=== PATIENT | female | born 1950 | race Caucasian/White ===

== ENCOUNTER 2020-08-26 10:44 | Outpatient (REF) | payer MEDICARE, SELFPAY | END 2020-08-26 10:45 | disposition home or self-care (01) | LOC: HO.HOSX 10:44 | PROVIDERS: PCP Internal Medicine; Visit Provider Orthopaedic Surgery | DX: Z13.89 Encounter for screening for other disorder (principal) ==

== ENCOUNTER 2020-08-28 10:55 | Outpatient (REF) | payer MEDICARE, SELFPAY ==
--- NOTE | ~2020-08-28 | XR_ITS ---
EXAMINATION: XR HIP, LEFT CLINICAL INFORMATION: Pain COMPARISON: Previous left hip x-ray August 2019 TECHNIQUE: Two views of the left hip and one view of the pelvis. FINDINGS: There is a left hip replacement in satisfactory position. No fracture, dislocation or x-ray evidence of loosening is seen. There is arthritis at the right hip joint. Bones of the pelvis are unremarkable. There is scoliosis and degenerative change of the visualized lower lumbar spine. Soft tissues are unremarkable. XR/XR hip LT w PEL1V IMPRESSION: Satisfactory appearance of left hip replacement.
== END 2020-08-28 10:56 | disposition home or self-care (01) ==
LOC: HO.XRAY 10:55
PROVIDERS: PCP Internal Medicine; Visit Provider Orthopaedic Surgery
DX: M25.552 Pain in left hip (principal); Z96.642 Presence of left artificial hip joint
CPT/HCPCS: 73502; 99212

== ENCOUNTER 2023-07-28 09:16 | Outpatient (REF) | payer MEDICARE, SELFPAY ==
--- NOTE | ~2023-07-28 | XR_ITS ---
EXAMINATION: XR HIP, RIGHT CLINICAL INFORMATION: Hip pain COMPARISON: 08/28/2020 TECHNIQUE: Two views of the pelvis and right hip. FINDINGS: Bony pelvis is intact. Degenerative changes visualized lower lumbar spine with scoliosis. SI joints within normal limits. Left total hip replacement is stable in position and is satisfactory in position. No change to indicate interval loosening. Severe right hip joint narrowing with sclerosis and subchondral cysts. Pelvic phleboliths. Soft tissue density in the pelvis likely bladder. XR/XR hip RT w PEL1V IMPRESSION: Advanced osteoarthritis right hip. Left total hip replacement. Degenerative changes lower lumbar spine.
== END 2023-07-28 09:17 | disposition home or self-care (01) ==
LOC: HO.HOSX 09:16
PROVIDERS: Visit Provider Physician Assistant
DX: M16.11 Unilateral primary osteoarthritis, right hip (principal); M54.50 Low back pain, unspecified; Z96.642 Presence of left artificial hip joint
CPT/HCPCS: 73502; 99212

== ENCOUNTER 2023-07-28 10:45 | Outpatient (AMB) | payer MEDICARE, SELFPAY ==
--- NOTE | 2023-07-28 11:10 | MHC.OFFVIS ---
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 Patient reports the past 6 months she has been experiencing lower back pain that radiates down into her hip and leg. States not sure if she strained a muscle due to being physically active doing yard work. States pain is worse with going into a sitting position or reclining in a chair. Finds some relief with heat, vicks, and ibuprofen prn. No relief with icing. Hx of left hip replacement. 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 She states she has sharp shooting pain in her lower back which radiates down to her hip and leg. Her pain is aggravated with sitting, getting in and out of chair, and reclining on chair. She finds mild relief with heat, Vicks and occasional ibuprofen. She has not had any previous injury. She reports she is not sure if she strained a muscle due to being physically active doing yard work. She also walks twice a day and do exercises. She has a history of left MAYR in August [address] Munguia. [facility] Social History (Updated 07/28/23 @ 11:14 by Taylor Pillai Julio) Patient Tobacco Use Status: Never used Tobacco Current occupational status: unemployed and retired Review of Systems Const All systems reviewed & are unremarkable except as noted in HPI and below Physical Exam Vital Signs: BMI result Body Mass Index 21.3 Const General: cooperative, healthy appearing, comfortable, no acute distress, well developed and alert Orientation/consciousness: patient oriented x3 HEENT Head: Yes normal to inspection, Yes normocephalic and Yes atraumatic Eyes General: appearance normal, both eyes and all related structures Resp Effort & Inspection: normal respiratory effort and able to speak in complete sentences Cardio Rate: regular rate Peripheral pulses: Peripheral pulses 2+ throughout GI Palpation (GI): Soft to palpation Skin Lesions: no lesions Rashes: no rashes Neuro General: patient oriented x3 Extrem Other: Right hip: Normal to inspection, ambulates with a slight limp. Has mild discomfort with internal and extension rotation of hip. No significant stiffness. Mild discomfort with hip flexion against resistance. NVI. Negative SI joint tenderness. Results Reviewed Results Reviewed: Xrays were obtained in the office today and personally reviewed by me of the right hip show moderat oa Assessment & Plan Assessment & Plan (1) Osteoarthritis of right hip: Code(s): M16.11 - Unilateral primary osteoarthritis, right hip Qualifiers: Osteoarthritis type: primary Qualified Code(s): M16.11 - Unilateral primary osteoarthritis, right hip Plan We discussed options which include physical therapy which she did hold off at this time. I did give her a handout of home exercises in the office today. If symptoms persist or worsens where she has limitations with activities, patient will contact the office, otherwise follow-up as needed. Orders: Orders XR hip RT w PEL1V Today M25.559 - Pain in unspecified hip Patient Instructions: Scribed for Анна Landaverde PA-C, by Arsalan Peres medical surgery nurse, on 07/28/2023 at 11:00 AM VERNON. Que, Анна Landaverde PA-C, have personally reviewed and agree with the information entered by the scribe. Coding Level of Care Code Est Pt Level 3 (75377) Diagnoses Primary osteoarthritis of right hip M16.11 Osteoarthritis type: primary
[2023-07-28 11:13] VITALS: BMI 21.3
== END 2023-07-28 12:05 | disposition home or self-care (01) ==
PROVIDERS: Visit Provider Physician Assistant
DX: M16.11 Unilateral primary osteoarthritis, right hip (principal)
CPT/HCPCS: 99213

== ENCOUNTER 2023-09-14 13:03 | Outpatient (AMB) | payer MEDICARE, SELFPAY ==
--- NOTE | 2023-09-14 13:46 | MHC.OFFVIS ---
Intake Intake Visit Reasons: OV - Right Hip OA - Discuss Surgery Intake Note: Nadja is a 72 year old female who presents today to discuss possible Right MARY. She was referred by Анна Landaverde. She is interested in trying a cortisone injection as she is going on a cruise next week. Allergies amoxicillin [AMOXICILLIN] Allergy (Unknown, Unverified 07/28/23 11:14) RASH,NAUSEA Sulfa (Sulfonamide Antibiotics) [SULFA (SULFONAMIDE ANTIBIOTICS)] Allergy (Unknown, Unverified 07/28/23 11:14) UNKNOWN HPI OV - Right Hip OA - Discuss Surgery HPI Details This is a 72 yo F who had a left hip replacement with Dr Munguia ~5 years ago. She comes in today describing 4-5 months of right hip pain. She describes pain radiating down her thigh and into her leo. She states there is no pain with walking but sitting/lying down can be unbearable. She has electrical shocks that run down her leg. She also has some sharp pain with occasional hip motion that localizes to anterior and posterolateral hip. Denies bowel or bladder dysfunction. Is taking NSAIDs and Tylenol. Cannot sleep. Is very uncomfortable [facility] Social History (Updated 07/28/23 @ 11:14 by Taylor Pillai [facility]) Patient Tobacco Use Status: Never used Tobacco Current occupational status: unemployed and retired Physical Exam Const General: cooperative, healthy appearing, no acute distress, well developed and alert HEENT Head: Yes normal to inspection, Yes normocephalic and Yes atraumatic Mouth: moist mucous membranes Eyes General: appearance normal, both eyes and all related structures EOM: EOMs intact bilaterally Chest Other: no audible wheezing. Resp Other: No audible wheezing Effort & Inspection: normal respiratory effort Cardio Other: Radial pulse palpable with no rythmic abnormalities Back/Spine/Pelvis Cervical Spine: normal cervical lordosis Skin General skin exam: no rashes or lesions noted Neuro General: no focal motor deficits Extrem Other: no gait antalgia Neg impingement neg stinchfield + lumbar compression with leo pain Psych Appearance: grossly normal and well kempt Mental Status: mental status grossly normal Speech and movement: Normal speech and movement present Affect: normal affect Attitude: cooperative Results Reviewed Results Reviewed: I personally reviewed relevant radiographs. Right hip OA that is essentially unchanged compared to prior imaging in 2020 Assessment & Plan Assessment & Plan (1) Lumbar radicular syndrome: Code(s): M54.16 - Radiculopathy, lumbar region Plan: SIgns and syptoms of lumbar radiculopathy for 6 months with stable right hip OA She is extremely uncomfortable and I ordered a medrol dose pack and recommend an MRI of her lumbar spine. She will d/c NSAIDs. Orders: Orders MR lumbar spine wo con Today M54.16 - Radiculopathy, lumbar region Medications: New methylprednisolone (Medrol (Mateusz)) PO PER PKG DIR for 6 days 1 ea 0RF Coding Level of Care Code New Pt Level 4 (13132) Diagnoses Lumbar radicular syndrome M54.16
== END 2023-09-14 15:39 | disposition home or self-care (01) ==
PROVIDERS: Visit Provider Orthopaedic Surgery
DX: M54.16 Radiculopathy, lumbar region (principal); M16.11 Unilateral primary osteoarthritis, right hip
CPT/HCPCS: 99204

== ENCOUNTER → 2023-09-14 13:03 | Outpatient (BNVA) | payer MEDICARE, SELFPAY | PROVIDERS: Visit Provider Orthopaedic Surgery | DX: M54.16 Radiculopathy, lumbar region (principal) | CPT/HCPCS: 99202 ==

== ENCOUNTER 2023-10-04 15:48 | Outpatient (REF) | payer MEDICARE, SELFPAY ==
--- NOTE | ~2023-10-04 | MR_ITS ---
EXAMINATION: MR LUMBAR SPINE WITHOUT CONTRAST CLINICAL INFORMATION: Radiculopathy COMPARISON: None TECHNIQUE: MRI of the lumbar spine was obtained using routine sequences without contrast. FINDINGS: There is lower thoracic/upper lumbar dextrocurvature, apex at L1-L2, and mild lower lumbar levocurvature. Left lateral listhesis at T12-L1 and L1-L2 with right lateral listhesis at L3-L4 greater than L2-L3. Sagittal alignment is preserved. Trace retrolistheses at L1-L2, L2-L3, L3-L4 and minimally at L4-L5. Vertebral body heights are maintained. There is no suspicious osseous lesion. Diffuse disc desiccation with multilevel severe disc height loss along the concavity of the scoliotic curvature with diffuse endplate irregularity/Schmorl's nodes and mixed type I and II Modic endplate changes. Type I Modic endplate changes are most pronounced on the left at L1-L2 with degenerative/stress-related edema extending into the left-sided posterior elements at this level. Multilevel ventral disc osteophytes most pronounced at L1-L2. Level by level detail as follows: L1-L2: Left eccentric disc osteophyte and mild bilateral facet arthrosis. No spinal canal stenosis, noting left subarticular zone narrowing abutting the traversing left L2 nerve root. Mild to moderate left without right neural foraminal stenosis. L2-L3: Left eccentric disc osteophyte and mild bilateral facet arthrosis with ligamentum flavum thickening. Mild spinal canal and subarticular zone narrowing. Moderate left neural foraminal stenosis with disc osteophyte impinging upon the exiting/extraforaminal left L2 nerve root. No right neural foraminal stenosis. L3-L4: Disc osteophyte complex and [id number]-[id number] bilateral facet arthrosis with ligamentum flavum thickening. No spinal canal stenosis, noting subarticular zone narrowing bilaterally. Moderate right and mild left neural foraminal stenosis with impingement upon the exiting/extraforaminal bilateral L3 nerve roots. L4-L5: Annular disc bulge with right greater than left foraminal disc protrusions and right lateral disc osteophyte. Moderate bilateral facet arthrosis with ligamentum flavum thickening. Degenerative marrow edema associated with the right facet joint and degenerative/stress related edema of the right-sided L4 and L5 pedicles. No spinal canal stenosis. Moderate right and mild left neural foraminal stenosis with impingement upon the exiting/extraforaminal right and L5-S1: Right eccentric disc osteophyte complex, severe hypertrophic right and milder left facet arthrosis. No spinal canal stenosis. Severe right neural foraminal stenosis with compression of the exiting/extraforaminal right L5 nerve root. No left neural foraminal stenosis. The conus medullaris terminates at the level of T12-L1. The distal spinal cord is normal in appearance. No epidural fluid collection, hematoma, or mass. No significant abnormalities of the paraspinal musculature. Limited evaluation of the intra-abdominal structures without significant abnormalities. The abdominal aorta is of normal contour and caliber. MR/MR lumbar spine wo con IMPRESSION: 1. S-shaped thoracolumbar scoliosis with lower thoracic/upper lumbar dextrocurvature and mild lower lumbar levocurvature. Multilevel advanced discogenic disease along the concavity of the scoliotic curvature. 2. Lumbar spondylosis as described without high-grade spinal canal stenosis. Multilevel neural foraminal stenosis, worst and severe on the right at L5-S1 with compression of the exiting/extraforaminal right L5 nerve root. Moderate neural foraminal stenosis on the left at L2-L3 and on the right at L3-L4 and L4-L5 with impingement upon the exiting/extraforaminal nerve roots at these levels.
== END 2023-10-04 15:49 | disposition home or self-care (01) ==
LOC: HO.MRI 15:48
PROVIDERS: Visit Provider Orthopaedic Surgery
DX: M54.16 Radiculopathy, lumbar region (principal)
CPT/HCPCS: 72148

== ENCOUNTER 2023-10-12 13:44 | Outpatient (AMB) | payer MEDICARE, SELFPAY ==
--- NOTE | 2023-10-12 13:48 | MHC.OFFVIS ---
Intake Vital Signs 10/12/23 13:49 Height 5 ft 3 in Weight 120 lb BMI 21.3 Intake Visit Reasons: OV - Lumbar Spine MRI Review Intake Note: Estephanie is a 73 year old female who presents today for a lumbar spine MRI review Allergies amoxicillin [AMOXICILLIN] Allergy (Unknown, Unverified 07/28/23 11:14) RASH,NAUSEA Sulfa (Sulfonamide Antibiotics) [SULFA (SULFONAMIDE ANTIBIOTICS)] Allergy (Unknown, Unverified 07/28/23 11:14) UNKNOWN HPI OV - Lumbar Spine MRI Review HPI Details Estephanie is here for her ongoing right leg numbness and tingling. I had ordered an MRI. SHe also has radiographic evidence of right hip OA. She is still having radiating burning pain down the anterolateral thigh and into the lower leg. [facility] Social History Patient Tobacco Use Status: Never used Tobacco Current occupational status: unemployed and retired Physical Exam Vital Signs: BMI result Body Mass Index 21.3 Extrem Other: Gait antalgia no groin pain with hip ROM Results Reviewed Results Reviewed: MR/MR lumbar spine wo con IMPRESSION: 1. S-shaped thoracolumbar scoliosis with lower thoracic/upper lumbar dextrocurvature and mild lower lumbar levocurvature. Multilevel advanced discogenic disease along the concavity of the scoliotic curvature. 2. Lumbar spondylosis as described without high-grade spinal canal stenosis. Multilevel neural foraminal stenosis, worst and severe on the right at L5-S1 with compression of the exiting/extraforaminal right L5 nerve root. Moderate neural foraminal stenosis on the left at L2-L3 and on the right at L3-L4 and L4-L5 with impingement upon the exiting/extraforaminal nerve roots at these levels. Assessment & Plan Assessment & Plan (1) Osteoarthritis of right hip: Code(s): M16.11 - Unilateral primary osteoarthritis, right hip Qualifiers: Osteoarthritis type: primary Qualified Code(s): M16.11 - Unilateral primary osteoarthritis, right hip Plan: moderate to severe right hip OA but neuro symptoms more bothersome. May require arthroplasty in the future but I recommend referral to neuro spine at this time. (2) Lumbar radiculopathy: Code(s): M54.16 - Radiculopathy, lumbar region Plan: Referral to Neuro spine Orders: Referrals Neuro Spine Referral M54.16 - Radiculopathy, lumbar region Coding Level of Care Code Est Pt Level 4 (77562) Diagnoses Primary osteoarthritis of right hip M16.11 Osteoarthritis type: primary Lumbar radiculopathy M54.16
[2023-10-12 13:49] VITALS: BMI 21.3
== END 2023-10-12 15:01 | disposition home or self-care (01) ==
PROVIDERS: Visit Provider Orthopaedic Surgery
DX: M16.11 Unilateral primary osteoarthritis, right hip (principal); M54.16 Radiculopathy, lumbar region
CPT/HCPCS: 99213

== ENCOUNTER 2023-10-12 13:44 | Outpatient (REF) | payer MEDICARE, SELFPAY ==
--- NOTE | ~2023-10-12 | XR_ITS ---
EXAMINATION: XR LUMBOSACRAL SPINE WITH OBLIQUES CLINICAL INFORMATION: Scoliosis. COMPARISON: 10/04/2023 MRI TECHNIQUE: AP, both oblique, and lateral views of the lumbar spine. Lateral view of the lumbosacral junction. FINDINGS: Moderate dextroscoliosis observed in the lumbar spine with compensatory left-sided spondylosis and productive change. Moderate compression deformities L2 and L3 are seen which appear more conspicuous today than on the MRI of 10/04/2023. Has there been any recent trauma ? XR/XR lumbar spine 4V min IMPRESSION: Compression deformities L2 and L3. Dextroscoliosis as described.
== END 2023-10-12 13:45 | disposition home or self-care (01) ==
LOC: HO.HOSX 13:44
PROVIDERS: Visit Provider Orthopaedic Surgery
DX: M16.11 Unilateral primary osteoarthritis, right hip (principal); M54.16 Radiculopathy, lumbar region; M41.50 Other secondary scoliosis, site unspecified
CPT/HCPCS: 72110; 99202; 99212

== ENCOUNTER 2023-11-03 15:01 | Outpatient (REF) | payer MEDICARE, SELFPAY ==
--- NOTE | ~2023-11-03 | CT_ITS ---
EXAMINATION: CT LUMBAR SPINE WITHOUT CONTRAST CLINICAL INFORMATION: Degenerative Lumbar scoliosis COMPARISON: Lumbar spine x-ray on 10/12/2023, MRI of lumbar spine on 10/04/2023. TECHNIQUE: Multiple 2.0 and 1.5 mm axial images of the lumbar spine were obtained from lower T12 to S1 levels without IV contrast enhancement. Bone window and soft tissue window images were reconstructed. Coronal and Sagittal bone window images were also reconstructed from the axial image data. This CT examination was performed using dose optimization techniques as appropriate, variously including the following: *Automated exposure control *Adjustment of mA and/or kV according to patient size (this includes techniques or standardized protocols for targeted exams where dose is matched to indication/reason for exam; i.e. extremities or head) *Use of iterative reconstruction technique DLP: 345.56 mGy-cm FINDINGS: The visualized lumbar vertebrae are intact with moderate L3-L4 levoscoliosis. T12/L1: Bony structures are intact with normal alignment. Intervertebral disc height is normal. Bilateral neuroforamina are patent. Bilateral apophyseal joints are intact with normal alignment. Bilateral apophyseal joints show loss of joint space, sclerosis, facet hypertrophy and osteophytosis L-1/L-2: Bony structures are intact with normal alignment. Large sharp left lateral bridging syndesmophytes are present. Intervertebral disc height is severely reduced, with vacuum disc phenomenon. Mixed sclerotic and erosive changes are seen in left lateral L1 and L2 vertebral endplates. There is moderate asymmetric left L1-L2 neural foraminal stenosis due to impingement by syndesmophytes. Bilateral apophyseal joints are intact with normal alignment. Bilateral apophyseal joints show loss of joint space, sclerosis, facet hypertrophy and osteophytosis L2/L3: Bony structures are intact with normal alignment. Large sharp left lateral bridging syndesmophytes are present. Intervertebral disc height is severely reduced, with vacuum disc phenomenon. Bilateral neuroforamina are patent. Bilateral apophyseal joints are intact with normal alignment. Bilateral apophyseal joints show loss of joint space, sclerosis, facet hypertrophy and osteophytosis L3/L4: Bony structures are intact with right L3 on L4 displacement by 0.8 cm. Sharp bilateral bridging syndesmophytes are present. Intervertebral disc height is severely reduced, with vacuum disc phenomenon. There is moderate asymmetric right L3-L4 neural foraminal stenosis. Bilateral apophyseal joints are intact with normal alignment. L4/L5: Bony structures are intact with normal alignment. Sharp right lateral bridging syndesmophytes are present. Intervertebral disc height is normal. There is marked asymmetric right L4-L5 neuroforamina stenosis due to impingement by syndesmophytes. Bilateral apophyseal joints are intact with normal alignment. Bilateral apophyseal joints show loss of joint space, sclerosis, facet hypertrophy and osteophytosis L5/S1: Bony structures are intact with normal alignment. Sharp right lateral bridging syndesmophytes are present. Intervertebral disc height is markedly decreased, with vacuum disc phenomenon. There is marked asymmetric right L5-S1 neural foraminal stenosis due to impingement by syndesmophytes.. Bilateral apophyseal joints are intact with normal alignment. Bilateral apophyseal joints show loss of joint space, sclerosis, facet hypertrophy and osteophytosis. CT/CT lumbar spine wo IV con IMPRESSION: 1. No acute fracture or dislocation of the lumbar spine. 2. Unchanged Moderate L3-L4 levoscoliosis, right-sided L3-L4 spondylolisthesis. 3. Unchanged Severe multilevel lumbar spondylosis, degenerative disc disease with vacuum disc phenomenon. 4. Unchanged Moderate asymmetric left L1-L2, right L3-L4, L4-L5 and L5-S1 neural foraminal stenosis due to impingement by syndesmophytes.
== END 2023-11-03 15:02 | disposition home or self-care (01) ==
LOC: HO.CT 15:01
PROVIDERS: Visit Provider Physician Assistant
DX: M51.36 Other intervertebral disc degeneration, lumbar region (principal); M41.50 Other secondary scoliosis, site unspecified
CPT/HCPCS: 72132

== ENCOUNTER 2024-02-06 | Outpatient (REF) | payer MEDICARE, SELFPAY ==
--- NOTE | 2024-02-06 | ECG_ITS ---
Test Reason : pre op Blood Pressure : / mmHG Vent. Rate : 059 BPM Atrial Rate : 059 BPM P-R Int : 168 ms QRS Dur : 088 ms QT Int : 426 ms P-R-T Axes : 070 052 055 degrees QTc Int : 421 ms Sinus bradycardia Otherwise normal ECG When compared with ECG of 22-JUL-2019 11:43, No significant change was found Referred By: Sofia Borrero Electronically Signed By:Sameer Gomez
[2024-02-06 10:33] VITALS: BP 141/67; PULSE 61; RESP 18; O2SAT 100; BMI 20.6
--- NOTE | 2024-02-06 10:57 | HO.ANESPROP2 ---
HPI - Anesthesia Eval Consult details Narrative: 73yo F for L3-4,L4-5,L5-S1 Transkambin Lumbar Interbody Fusion, 02/20/24 No recentillness No CP/SOB with walking, housework, yardwork No signif PMHx PMFSH Active Problems Active Problems: All Active Problems Degenerative scoliosis (Acute) Lumbar radiculopathy (Acute) Lumbar radicular syndrome (Acute) Osteoarthritis of right hip (Acute) History of total left hip arthroplasty (Acute) Past Medical History Medical History (Updated 02/06/24 @ 11:57 by Sofia Borrero NP) Arthritis Scoliosis of lumbar spine Right hip pain Osteopenia Lumbar disc disease Basal cell carcinoma Clavicular enlargement Family History Family history of problems with anesthesia: No Surgical History Surgical History (Updated 02/05/24 @ 10:44 by Qiana Tenorio RN) H/O colonoscopy Hx of total hip arthroplasty History of Problems with Anesthesia: Yes (Severe PONV with opiates) Social History Social History Are you a primary care management assistant to a significant other at home: No Do you presently have visiting nurse or other home services: No Patient Tobacco Use Status: Never used Tobacco Use of substances other than those prescribed or required for medical reasons: No Have you been hit, kicked, punched, or otherwise hurt by someone within the past year? If so, by whom?: No Are you DNR?: No Advance Directives: No Advance Directives Information Provided: No Advance Directives on File: No Recently lost weight without trying: No Eating poorly because of decreased appetite: No Nutrition Risks: No Nutritional Risk Patient : No : No Poor oral hygiene: Yes (upper partial denture) Current occupational status: unemployed and retired Meds Allergies Allergy/AdvReac Type Severity Reaction Status Date / Time amoxicillin [AMOXICILLIN] Allergy Unknown RASH,NAUSEA Verified 02/07/24 15:22 Sulfa (Sulfonamide Allergy Unknown UNKNOWN Verified 02/07/24 15:22 Antibiotics) [SULFA (SULFONAMIDE ANTIBIOTICS)] Home Medications ?Medication ?Instructions ?Recorded ?Confirmed ?Last Taken ?Type calcium carbonate (Tums) 200 mg PO DAILY 02/06/24 02/06/24 Unknown History multivitamin 1 tab PO DAILY 02/06/24 02/06/24 Unknown History Exam Height,Weight and Vital Signs: Height 5 ft 4 in Weight 54.431 kg Last Vital Signs Pulse 61 02/06/24 10:33 Resp 18 02/06/24 10:33 BP 141/67 H 02/06/24 10:33 Pulse Ox 100 02/06/24 10:33 O2 Del Method Room Air 02/06/24 10:33 Narrative Narrative: EKG 01/2024 Vent. Rate : 059 BPM Atrial Rate : 059 BPM P-R Int : 168 ms QRS Dur : 088 ms QT Int : 426 ms P-R-T Axes : 070 052 055 degrees QTc Int : 421 ms Sinus bradycardia Otherwise normal ECG When compared with ECG of 22-JUL-2019 11:43, No significant change was found Airway TM Dist: >3cm Neck ROM: Full Partial: Upper Heart: RRR Lungs: CTAB Assessment and Plan Assessment Anesthesia Assessment: Anesthesia Plan Discussed and PAT Visit Final Anesthetic Review Family History of Problems with Anesthesia: No History of Problems with Anesthesia: Yes (Severe PONV with opiates)
[2024-02-06 13:02] LABS: Anion Gap 10 (12-20); Blood Urea Nitrogen 17 mg/dL (9-16); Calcium 10.3 mg/dL (8.4-10.2); Carbon Dioxide 30 mmol/L (22-29); Chloride 105 mmol/L (96-108); Creatinine Clr Calc Pharmacy 54.1; Estimated Glomerular Filt Rate > 60; Glucose Random 97 mg/dL (60-115); Potassium 4.3 mmol/L (3.3-5.1); Sodium 141 mmol/L (135-145)
== END 2024-02-06 00:01 | disposition home or self-care (01) ==
LOC: HO.PAT
PROVIDERS: Nurse Practitioner; PCP Internal Medicine; Visit Provider Neurological Surgery
DX: Z01.818 Encounter for other preprocedural examination (principal); M41.50 Other secondary scoliosis, site unspecified
CPT/HCPCS: 36415; 80048; 86850; 86900; 86901; 93005

== ENCOUNTER → 2024-02-06 11:21 | Outpatient (BNV) | payer MEDICARE, SELFPAY | PROVIDERS: Admitting Provider Neurological Surgery; PCP Internal Medicine; Visit Provider Internal Medicine Cardiovascular Disease | DX: R00.1 Bradycardia, unspecified (principal) | CPT/HCPCS: 93010 ==

== ENCOUNTER → 2024-02-07 14:42 | Outpatient (BNVA) | payer MEDICARE, SELFPAY | PROVIDERS: PCP Internal Medicine; Visit Provider Neurological Surgery | DX: M41.56 Other secondary scoliosis, lumbar region (principal) | CPT/HCPCS: 99212 ==